=== PATIENT | female | born 1990 | race African-American/Black ===

== ENCOUNTER 2022-11-21 08:54 | Day surgery (SDC) | payer OTHER ==
[2022-11-14 14:30] LABS: BASOPHILS # (AUTO) 0.1 X10'3 (0-0.2); BASOPHILS % (AUTO) 1.4 % (0-1); EOSINOPHILS # (AUTO) 0.1 X10'3 (0-0.9); EOSINOPHILS % (AUTO) 1.1 % (0-6); LYMPHOCYTES # (AUTO) 2.3 X10'3 (1.1-4.8); LYMPHOCYTES % (AUTO) 35.7 % (21-51); MEAN CORPUSCULAR HEMOGLOBIN 24.7 PG (27.0-31.0); MEAN CORPUSCULAR HGB CONC 31.5 g/dL (33.0-36.5); MEAN CORPUSCULAR VOLUME 78.2 FL (78-98); MONOCYTES # (AUTO) 0.3 X10'3 (0-0.9); MONOCYTES % (AUTO) 4.5 % (2-12); NEUTROPHILS # (AUTO) 3.6 X10'3 (1.8-7.7); NEUTROPHILS % (AUTO) 57.3 % (42-75); PRE OP PLATELET COUNT 348 X10'3 (140-440); RED BLOOD COUNT 3.96 X10'6 (4.20-5.60); RED CELL DISTRIBUTION WIDTH 18.2 % (11.5-14.5)
[2022-11-14 14:33] LABS: PRE OP HEMOGLOBIN 9.8 g/dL (12.0-16.0)
[2022-11-14 14:42] LABS: ALBUMIN 3.9 G/DL (3.4-5.0); ALBUMIN/GLOBULIN RATIO 1.1 (1.1-1.5); ALKALINE PHOSPHATASE 66 IU/L (46-116); BLOOD UREA NITROGEN 21 MG/DL (7-18); BUN/CREATININE RATIO 29.6 (10.0-20.0); CALCIUM 8.7 MG/DL (8.5-10.1); CHLORIDE 104 MMOL/L (99-107); CREATININE 0.71 MG/DL (0.40-0.90); PRE OP ALT 19 U/L (30-65); PRE OP ANION GAP 10 (8-16); PRE OP AST 22 U/L (10-37); PRE OP BILIRUB, TOTAL 0.3 MG/DL (0.0-1.0); PRE OP GLUCOSE 80 MG/DL (70-104); PRE OP POTASSIUM 3.6 MMOL/L (3.4-5.1); PRE OP SODIUM 142 MMOL/L (135-145); TOTAL CARBON DIOXIDE 27.8 MMOL/L (24-32); TOTAL PROTEIN 7.6 G/DL (6.4-8.2); eGFR > 90 ML/MIN
[2022-11-14 15:07] LABS: HCG SERUM QL NEGATIVE
[~2022-11-21] VITALS: Ht 152.4 cm; Wt 50.7 kg
[2022-11-21] VITALS (12 sets, daily range): BP systolic 122–154; BP diastolic 70–84; PULSE 16–107; RESP 12–19; TEMP 98.3; O2SAT 100
[~2022-11-21 08:54] MED LIST: NO HOME MEDS; ceFOXitin 2GM-NS 100mL ADDvant 100 ML IV ONE; famotidine 20mg tablet PO ONE; ringers solution, lacted 1,000 ML IV SCH
[2022-11-21 09:58] LABS: PREOP URINE HCG NEGATIVE (NEGATIVE)
[2022-11-21] MEDS ORDERED: methylene blue (5mg/ml) 50mg/10ml ampul IV ONE (11:38)
[2022-11-21] MEDS ORDERED: BUPIVAcaine 0.5% inj/PF 30 ML ONE (11:38)
[2022-11-21] MEDS ORDERED: sevoflurane 250ml liquid IH ONE (11:49)
[2022-11-21] MEDS ORDERED: morphine 2 MG/ML inj. syringe IV PRN (11:55)
[2022-11-21] MEDS ORDERED: ringers solution, lacted 1,000 ML IV SCH (11:55)
[2022-11-21] MEDS ORDERED: hydrALAZINE 20mg/ml inj. IV PRN (11:55)
[2022-11-21] MEDS ORDERED: HYDROmorphone/PF 0.2 MG/ML SYRINGE IV PRN ×2 (11:55)
[2022-11-21] MEDS ORDERED: labetalol 20mg/4ml (5mg/ml) syringe IV PRN (11:55)
[2022-11-21] MEDS ORDERED: meperidine/PF 25mg/ml syringe IV PRN (11:55)
[2022-11-21] MEDS ORDERED: ondansetron/PF 4mg/2ml inj IV PRN (11:55)
[2022-11-21] MEDS ORDERED: proCHLORperazine 10 MG/2 ml inj IV PRN (11:55)
[2022-11-21] MEDS ORDERED: morphine 4 MG/ML inj SYRINge IV PRN (11:55)
[2022-11-21] MEDS ORDERED: acetaminophen 1,000mg/100ml IV 100 ML IV PRN (11:55)
[2022-11-21] MEDS ORDERED: midazolam 1 mg/ML 2ml injection ONE (11:59)
[2022-11-21] MEDS ORDERED: fentaNYL/PF 50MCG/1 ML 2ML syringe ONE (11:59)
[2022-11-21] MEDS ORDERED: propofol inj 20 ML IV ONE (12:13)
[2022-11-21] MEDS ORDERED: LIDOcaine 2% (20mg/ml) 5ml vial ONE (12:14)
[2022-11-21] MEDS ORDERED: rocuronium 10mg/ml inj IV ONE (12:14)
[2022-11-21] MEDS ORDERED: dexamethasone sod phosphate 4mg/ml inj. ONE ×2 (12:15→13:41)
[2022-11-21] MEDS ORDERED: ondansetron/PF 4mg/2ml inj ONE (12:15)
[2022-11-21] MEDS ORDERED: BUPIVAcaine/PF 2.5mg/ml (0.25%) 10ml vial ONE (13:42)
[2022-11-21] MEDS ORDERED: BUPIVAcaine 0.25% w/Epi /PF 30ml vial IJ ONE (13:49)
[2022-11-21] MEDS ORDERED: dexamethasone sod phosphate 4mg/ml inj. PO ONE (13:50)
[2022-11-21] MEDS ORDERED: glycopyrrolate 0.2mg/ml inj ONE (14:00)
[2022-11-21] MEDS ORDERED: neostigmine methylsulfate 1 MG/ML 10ml vial ONE (14:00)
--- NOTE | 2022-11-21 14:10 | NUR ---
Received from OR via [facility], accompanied by Anesthesiologist DR MANN and report given by Anesthesiolgist. PT PRESENTS WITH 20G RIGHT ARM, SP02 100% 6L MASK, LR RUNNING AT 100MLS/HR, NOAH PAD CDI, VSS Addendum: 11/21/22 at 1419 by Barbara Garcia RN, RN Amended: Links added.
[2022-11-21] MEDS ORDERED: oxyCODONE/APAP 5-325mg tablet PO ONE (14:55)
--- NOTE | 2022-11-21 15:50 | NUR ---
DC HOME: ALL DISCHARGE CRITERIA HAS BEEN MET. VSS, PAIN AT TOLERABLE LEVEL. ABLE TO SAFELY AMBULATE AND TRANSFER SELF. IV TAKEN OUT WITHOUT ANY COMPLICATIONS. ALL DISCHARGE INSTRUCTIONS COVERED WITH PATIENT AND ALL QUESTIONS ANSWERED. PATIENT TAKEN OUT VIA WHEELCHAIR TO PERSONAL VEHICLE WHERE FAMILY/FRIEND DROVE PATIENT HOME. Addendum: 11/21/22 at 1602 by Barbara Garcia RN, RN Amended: Links added.
== END 2022-11-21 16:06 | disposition home or self-care (01) ==
LOC: PAS 08:54
PROVIDERS: ATTEND Obstetrics & Gynecology
DX: D27.0 Benign neoplasm of right ovary (principal); D64.9 Anemia, unspecified; Z79.899 Other long term (current) drug therapy
CPT/HCPCS: 36415; 58350; 58662; 80053; 81025; 82948; 84703; 85025; 86885; 86900; 86901; A6258; J0131; J0694; J1100; J2250; J2405; J2704; J2710; J3010; J3490; J7030; J7120; Q9968; S0020; Z7506; Z7508; Z7512; A4618; A6250; A7000